=== PATIENT | female | born 1975 | race Caucasian/White ===

== ENCOUNTER 2017-10-31 09:35 | Emergency (ER) | payer SELFPAY ==
[~2017-10-31] VITALS: Ht 160 cm; Wt 61.2 kg
[2017-10-31] MEDS ORDERED: KETOROLAC 30 MG/ML VIAL IM ONE (10:45)
[2017-10-31] MEDS ORDERED: ORPHENADRINE 60 MG/2 ML (NORFLEX) AMP IM ONE (10:45)
[2017-10-31] MEDS ORDERED: PRD20T PO (11:23)
[2017-10-31] MEDS ORDERED: HYDR-3812 PO (11:23)
--- NOTE | 2017-10-31 11:23 | ED General ---
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 REPORTS HAS HAS PAIN IN R SHOULDER AND SCAPULA FOR 3 MONTHS WAS SEEN BY [facility] THIS WEEK AND SCHEDULED TO SEE ORTHO AT [facility] IN 2 WEEKS. REPORTS ADVIL NOT HELPING PAIN. Nursing Sepsis Screen: No Definite Risk Source of Information: Patient, [employer] Exam Limitations: No Limitations History of Present Illness Date Seen by Provider: Oct 31, 2017 Time Seen by Provider: 10:22 Initial Comments This 42-year-old woman presents to the emergency room with complaints of pain in the right shoulder and radiating down to the right elbow. This pain has been present for about 3 months. Pain has been intensifying and she now rates it as a 10. She has been using ibuprofen but that stopped helping about 3 weeks ago. She denies any injury or strain to this area. She has no numbness, weakness or paresthesias. Her last dose of ibuprofen 800 mg was yesterday. She has increased pain with movement of the right arm and with inspiration. The focus of her pain seems to be in the right trapezius muscle. She denies any cervical spine pain. Allergies and Home Medications Allergies Coded Allergies: No Known Drug Allergies (Unverified , 10/31/17) Home Medications Hydrocodone/Acetaminophen 1 Each Tablet, 1 EACH PO Q4H PRN for PAIN-MODERATE TO SEVERE Prescribed by: ANABELLE CLARK on 10/31/17 1123 Prednisone 20 Mg Tab, 40 MG PO DAILY Prescribed by: ANABELLE CLARK on 10/31/17 1123 Patient Home Medication List Home Medication List Reviewed: Yes Review of Systems Constitutional: no symptoms reported EENTM: no symptoms reported Respiratory: no symptoms reported Cardiovascular: no symptoms reported Gastrointestinal: no symptoms reported Genitourinary: no symptoms reported Musculoskeletal: see HPI Skin: no symptoms reported Psychiatric/Neurological: See HPI Hematologic/Lymphatic: No Symptoms Reported Immunological/Allergic: no symptoms reported Past Ccrxlpo-Aeuvfi-Diykqr Hx Patient Social History Alcohol Use: Denies Use Recreational Drug Use: No Smoking Status: Never a Smoker Recent Foreign Travel: No Contact w/Someone Who Travel: No Recent Infectious Disease Expo: No Past Medical History Surgeries: Yes Hysterectomy Respiratory: No Cardiac: No Neurological: No : No Reproductive Disorders: No Genitourinary: No Gastrointestinal: No Musculoskeletal: No Endocrine: No HEENT: No Cancer: No Did You Recieve Any Treatments: No Psychosocial: No Integumentary: No Physical Exam Vital Signs Vital Signs - First Documented 10/31/17 10:20 Temp 97.6 Pulse 82 Resp 18 B/P (MAP) 149/96 (113) Pulse Ox 96 O2 Delivery Room Air Capillary Refill : Less Than 3 Seconds General Appearance: WD/WN, Mild Distress HEENT: PERRL/EOMI, Normal ENT Inspection Neck: Full Range of Motion, Normal Inspection, Non Tender, Supple Respiratory: Lungs Clear, Normal Breath Sounds, No Accessory Muscle Use, No Respiratory Distress Cardiovascular: Regular Rate, Rhythm, No Edema, No Murmur Back: Normal Inspection, Other (Tenderness in the right trapezius muscle and in the musculature between the scapula and thoracic spine.) Extremity: Other (Mild tenderness in the musculature of the right upper arm. 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 Patient was given injection of Toradol and Norflex which did help her pain. Patient was started on a course of prednisone and given a prescription for hydrocodone for breakthrough pain. I checked with [facility] and discovered she has established care appointment later in the month. She is to talk with the primary care provider at that time about referral to orthopedics. Patient was also advised to complete the financial planner paperwork at discharge. Departure Impression Primary Impression: Right shoulder pain Qualified Codes: M25.511 - Pain in right shoulder Additional Impression: Right arm pain Disposition: HOME, SELF-CARE Condition: Improved Departure-Patient Inst. Decision time for Depature: 11:00 Referrals: [facility] (PCP/Family) Primary Care Physician Patient Instructions: NO INSTRUCTIONS GIVEN Add. Discharge Instructions: You may continue taking ibuprofen (Advil or Motrin) up to 600 mg every 6 hours as needed for pain. Add hydrocodone for pain not controlled by ibuprofen. Take prednisone early in the day with food or milk. Return to care if symptoms are worsening instead of improving. Keep your appointment with your primary care provider later this month. Discuss opportunities for imaging if pain is not improving. This may include MRI of the neck and/or upper back. Complete the financial planner paperwork for [facility] as soon as possible. All discharge instructions reviewed with patient and/or family. Voiced understanding. Scripts Hydrocodone/Acetaminophen (Hydrocodone-Acetamin 5-325 mg) 1 Each Tablet 1 EACH PO Q4H Y for PAIN-MODERATE TO SEVERE, #20 TAB Prov: ANABELLE RODRIGUEZ MD 10/31/17 Prednisone (Prednisone) 20 Mg Tab 40 MG PO DAILY, #10 TAB Prov: ANABELLE RODRIGUEZ MD 10/31/17 Copy Copies To 1: MAYANK ORANTES JOSHUA T MD Oct 31, 2017 11:23
[2017-10-31 11:31] VITALS: BP 149/96
== END 2017-10-31 11:29 | disposition home or self-care (01) ==
LOC: ER 09:39
DX: M25.511 Pain in right shoulder (principal); Z79.52 Long term (current) use of systemic steroids; Z90.710 Acquired absence of both cervix and uterus
CPT/HCPCS: 96372

== ENCOUNTER 2021-03-24 15:50 | Emergency (ER) | payer SELFPAY ==
[~2021-03-24] VITALS: Ht 152 cm; Wt 27.0 kg
[~2021-03-24 15:50] MED LIST: ACHD5005 PO; PRD20T PO
[2021-03-24] MEDS ORDERED: ASPIRIN 81 MG CHEW (CHILDREN'S ASA) PO STA (16:15)
[2021-03-24] MEDS ORDERED: NS IV 1000 ML 1,000 ML IV SCH (16:15)
[2021-03-24 16:24] LABS: BASOPHILS % (AUTO) 0 % (0-10); EOSINOPHILS % (AUTO) 0 % (0-10); HEMATOCRIT 40 % (35-52); LYMPHOCYTES # (AUTO) 1.6 10^3/uL (1.0-4.0); LYMPHOCYTES % (AUTO) 20 % (12-44); MEAN CORPUSCULAR HEMOGLOBIN 31 pg (25-34); MEAN CORPUSCULAR HGB CONC 35 g/dL (32-36); MEAN CORPUSCULAR VOLUME 90 fL (80-99); MEAN PLATELET VOLUME 10.1 fL (9.0-12.2); MONOCYTES # (AUTO) 0.5 10^3/uL (0.0-1.0); MONOCYTES % (AUTO) 6 % (0-12); NEUTROPHILS # (AUTO) 5.9 10^3/uL (1.8-7.8); NEUTROPHILS % (AUTO) 74 % (42-75); PLATELET COUNT 200 10^3/uL (130-400)
--- NOTE | 2021-03-24 16:25 | ED General ---
General Chief Complaint: General Problems/Pain Stated Complaint: HIGH BP,CHEST PAIN Nursing Triage Note: ARRIVED VIA AMB TO ROOM 06. PT STATES SHE HAS THE SENSATION OF BEING SOA AND CHOKING. STATES SHE HAS SOME CHEST PRESSURE OFF AND ON. DENIES ANXITY. History of Present Illness Date Seen by Provider: Mar 24, 2021 Time Seen by Provider: 15:50 Initial Comments 45 year old Yi speaking patient presents for chest pressure, SOA, and coughing. She reports a fever 2 days ago, she took Advil and used Eucalyptus. She denies any prescription medication. She has not received the Covid vaccine. She denies any known exposure. Her symptoms worsened this morning at approximately 0900. 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 Timing/Duration: 2-3 Days Severity: Mild Associated Systoms: Chest Pain, Cough; No Diaphoresis, No Fever/Chills, No Headaches; Loss of Appetite; No Malaise, No Nausea/Vomiting; Shortness of Air; No Syncope, No Weakness Allergies and Home Medications Allergies Coded Allergies: No Known Drug Allergies (Unverified , 10/31/17) Home Medications Albuterol Sulfate 1 Puff Puff, 2 PUFF INH Q4H 1 PUFF = 90 MCG Prescribed by: SYEDA BOCANEGRA on 03/24/211806 Azithromycin 250 Mg Tablet, 250 MG PO UD TAKE 2 TABLETS ON DAY ONE THEN TAKE 1 TABLET DAILY FOR FOUR MORE DAYS Prescribed by: SYEDA BOCANEGRA on 03/24/211806 Dexamethasone 6 Mg Tablet, 6 MG PO DAILY Prescribed by: SYEDA BOCANEGRA on 03/24/211806 Hydrocodone Bit/Acetaminophen 1 Each Tablet, 1 EACH PO Q4H PRN for PAIN-MODERATE TO SEVERE Prescribed by: ANABELLE CLRAK on 10/31/17 112 Prednisone 20 Mg Tab, 40 MG PO DAILY Prescribed by: ANABELLE CLARK on 10/31/17 112 Patient Home Medication List Home Medication List Reviewed: Yes Review of Systems Review of Systems Constitutional: no symptoms reported, see HPI Respiratory: see HPI, cough, short of breath Cardiovascular: see HPI, chest pain Gastrointestinal: no symptoms reported, see HPI Genitourinary: no symptoms reported, see HPI Musculoskeletal: no symptoms reported, see HPI All Other Systems Reviewed Negative Unless Noted: Yes Past Itathxt-Fcvtft-Bgyabx Hx Patient Social History Smoking Status: Never a Smoker Substance use?: No Alcohol Frequency: Couple times a week Pt feels they are or have been: No Past Medical History Surgeries: Yes Hysterectomy Respiratory: No Cardiac: No Neurological: No Reproductive Disorders: No Genitourinary: No Gastrointestinal: No Musculoskeletal: No Endocrine: No HEENT: No Cancer: No Did You Recieve Any Treatments: No Psychosocial: No Integumentary: No Family Medical History Reviewed Nursing Family Hx Physical Exam Vital Signs Vital Signs - First Documented 03/24/21 15:50 Temp 36.0 Pulse 84 Resp 16 B/P (MAP) 147/97 (114) Pulse Ox 100 O2 Delivery Room Air Capillary Refill : Less Than 3 Seconds Height, Weight, BMI Height: 5'3.00" Weight: 135lbs. oz. 61.570998sg; 11.00 BMI Method:Stated General Appearance: WD/WN, Anxious Eyes: Bilateral Eye Normal Inspection, Bilateral Eye PERRL, Bilateral Eye EOMI HEENT: PERRL/EOMI, TMs Normal, Normal ENT Inspection, Pharynx Normal Neck: Full Range of Motion, Normal Inspection, Non Tender, Supple Respiratory: Chest Non Tender, Lungs Clear, Normal Breath Sounds Cardiovascular: Regular Rate, Rhythm, No Edema, No Murmur, Normal Peripheral Pulses Gastrointestinal: Normal Bowel Sounds, Non Tender, Soft Back: Normal Inspection, No CVA Tenderness, No Vertebral Tenderness Extremity: Normal Capillary Refill, Normal Inspection, Normal Range of Motion Neurologic/Psychiatric: Alert, Oriented x3, No Motor/Sensory Deficits, Normal Mood/Affect Skin: Normal Color, Warm/Dry Progress/Results/Core Measures Suspected Sepsis SIRS Temperature: Pulse: 84 Respiratory Rate: 16 Laboratory Tests 03/24/21 16:10: White Blood Count 8.0 Blood Pressure 147 /97 Mean: 114 Laboratory Tests 03/24/21 16:10: Creatinine 0.69, Platelet Count 200, Total Bilirubin 0.4 Results/Orders Lab Results Laboratory Tests Test 03/24/21 16:10 03/24/21 16:35 Range/Units White Blood Count 8.0 4.3-11.0 10^3/uL Red Blood Count 4.48 3.80-5.11 10^6/uL Hemoglobin 14.0 11.5-16.0 g/dL Hematocrit 40 35-52 % Mean Corpuscular Volume 90 80-99 fL Mean Corpuscular Hemoglobin 31 25-34 pg Mean Corpuscular Hemoglobin Concent 35 32-36 g/dL Red Cell Distribution Width 11.9 10.0-14.5 % Platelet Count 200 130-400 10^3/uL Mean Platelet Volume 10.1 9.0-12.2 fL Immature Granulocyte % (Auto) 0 % Neutrophils (%) (Auto) 74 42-75 % Lymphocytes (%) (Auto) 20 12-44 % Monocytes (%) (Auto) 6 0-12 % Eosinophils (%) (Auto) 0 0-10 % Basophils (%) (Auto) 0 0-10 % Neutrophils # (Auto) 5.9 1.8-7.8 10^3/uL Lymphocytes # (Auto) 1.6 1.0-4.0 10^3/uL Monocytes # (Auto) 0.5 0.0-1.0 10^3/uL Eosinophils # (Auto) 0.0 0.0-0.3 10^3/uL Basophils # (Auto) 0.0 0.0-0.1 10^3/uL Immature Granulocyte # (Auto) 0.0 0.0-0.1 10^3/uL Erythrocyte Sedimentation Rate 32 H 0-20 MM/HR Sodium Level 141 135-145 MMOL/L Potassium Level 3.7 3.6-5.0 MMOL/L Chloride Level 108 H 98-107 MMOL/L Carbon Dioxide Level 21 21-32 MMOL/L Anion Gap 12 5-14 MMOL/L Blood Urea Nitrogen 7 7-18 MG/DL Creatinine 0.69 0.60-1.30 MG/DL Estimat Glomerular Filtration Rate 93 BUN/Creatinine Ratio 10 Glucose Level 100 70-105 MG/DL Calcium Level 8.8 8.5-10.1 MG/DL Corrected Calcium 8.6 8.5-10.1 MG/DL Total Bilirubin 0.4 0.1-1.0 MG/DL Aspartate Amino Transf (AST/SGOT) 33 5-34 U/L Alanine Aminotransferase (ALT/SGPT) 43 0-55 U/L Alkaline Phosphatase 90 40-136 U/L Lactate Dehydrogenase 237 H 125-220 U/L Troponin I < 0.028 <0.028 NG/ML C-Reactive Protein High Sensitivity 0.44 0.00-0.50 MG/DL Total Protein 7.7 6.4-8.2 GM/DL Albumin 4.2 3.2-4.5 GM/DL Procalcitonin 0.02 <0.10 NG/ML Influenza Type A (RT-PCR) Not Detected Not Detecte Influenza Type B (RT-PCR) Not Detected Not Detecte SARS-CoV-2 RNA (RT-PCR) Detected H Not Detecte Urine Color YELLOW Urine Clarity CLEAR Urine pH 6.5 5-9 Urine Specific [place] 1.010 L 1.016-1.022 Urine Protein NEGATIVE NEGATIVE Urine Glucose (UA) NEGATIVE NEGATIVE Urine Ketones NEGATIVE NEGATIVE Urine Nitrite NEGATIVE NEGATIVE Urine Bilirubin NEGATIVE NEGATIVE Urine Urobilinogen 0.2 < = 1.0 MG/DL Urine Leukocyte Esterase NEGATIVE NEGATIVE Urine RBC (Auto) TRACE-L NEGATIVE Urine RBC NONE /HPF Urine WBC 0-2 /HPF Urine Squamous Epithelial Cells 2-5 /HPF Urine Renal Epithelial Cells NONE /HPF Urine Crystals NONE /LPF Urine Bacteria NEGATIVE /HPF Urine Casts NONE /LPF Urine Mucus NEGATIVE /LPF Urine Culture Indicated NO My Orders Orders - SYEDA BOCANEGRA Cbc With Automated Diff (03/24/21 16:15) Comprehensive Metabolic Panel (03/24/21 16:15) Procalcitonin (Pct) (03/24/21 16:15) Hs C Reactive Protein (03/24/21 16:15) Erythrocyte Sedimentation Rate (03/24/21 16:15) LDH (03/24/21 16:15) Ekg Tracing (03/24/21 16:15) Chest 1 View, Ap/Pa Only (03/24/21 16:15) Covid 19 Inhouse Test (03/24/21 16:15) Influenza A And B By Pcr (03/24/21 16:15) Ua Culture If Indicated (03/24/21 16:15) Aspirin Chewable Tablet (Baby Aspirin Ch (03/24/21 16:15) Ed Iv/Invasive Line Start (03/24/21 16:15) Ns Iv 1000 Ml (Sodium Chloride 0.9%) (03/24/21 16:15) Urine Bedside (03/24/21 16:23) Troponin I (03/24/21 16:55) Vital Signs/I&O 03/24/21 03/24/21 15:50 18:15 Temp 36.0 Pulse 84 75 Resp 16 12 B/P (MAP) 147/97 (114) 153/91 Pulse Ox 100 99 O2 Delivery Room Air Room Air Capillary Refill : Less Than 3 Seconds Blood Pressure Mean: 114 Progress Note : Time: 15:20 Progress Note Patient seen and evaluated, will obtain labs, EKG, chest x-ray and Covid testing. Patient denies any requests at this time. 1630 Covid positive. Discussed results with the patient per translation line. Troponin and EKG negative. 1700 discharge instructions and return precautions reviewed with the patient. ECG Initial ECG Impression Date: Mar 24, 2021 Initial ECG Impression Time: 15:57 Initial ECG Rate: 88 Initial ECG Rhythm: Normal Sinus Initial ECG Intervals: Normal Initial ECG Intervals MO 137, QRSD 84, QT 374, QTc 453. [place] P 40, QRS 12, T 14. Initial ECG Impression: Normal Initial ECG Comparisson: No Previous ECG Available Diagnostic Imaging Diagonstic Imaging: Xray Plain Films/CT/US/NM/MRI: chest Comments NAME: CARLTON JEWELL TCM Bertha REC#: [id number] PT STATUS: REG ER : 1975 PHYSICIAN: SYEDA BOCANEGRA ADMIT DATE: 03/24/21/ER Draft Date of Exam:03/24/21 CHEST 1 VIEW, AP/PA ONLY INDICATION: Chest pressure, shortness of air. COMPARISON: None available. TECHNIQUE: Single frontal chest dated March 24, 2021. FINDINGS: The cardiac silhouette is within normal limits in size. No significant pulmonary vascular congestion. The left lung is clear. Mild right basilar interstitial opacities. No significant pleural effusion. No pneumothorax. No acute osseous abnormality. IMPRESSION: Mild right basilar infiltrate versus atelectasis. Dictated on workstation # [id number] Dict: 03/24/21 1734 Trans: 03/24/21 1742 [facility] [id number] Interpreted by: JULIAN FALL MD Electronically signed by: Reviewed: Reviewed by Me Departure Impression Primary Impression: COVID-19 Disposition: 01 HOME, SELF-CARE Condition: Stable Departure-Patient Inst. Decision time for Depature: 17:00 Referrals: [facility] (PCP/Family) Primary Care Physician Patient Instructions: COVID-19 (DC) Add. Discharge Instructions: Use medications as prescribed. Take aspirin 81 mg once daily. Increase water intake, 16 ounces every 2 hours while awake. Follow-up with your primary care provider if symptoms are not improving or worsen. Return to the emergency department for new, urgent healthcare problems. All discharge instructions reviewed with patient and/or family. Voiced understanding. Scripts Dexamethasone (Decadron) 6 Mg Tablet 6 MG PO DAILY, #7 TAB 0 Refills Prov: SYEDA BOCANEGRA 03/24/21 Albuterol Sulfate (VENTOLIN HFA) 1 Puff Puff 2 PUFF INH Q4H, #1 EA 0 Refills 1 PUFF = 90 MCG Prov: SYEDA BOCANEGRA 03/24/21 Azithromycin (Azithromycin) 250 Mg Tablet 250 MG PO UD, #6 TAB TAKE 2 TABLETS ON DAY ONE THEN TAKE 1 TABLET DAILY FOR FOUR MORE DAYS Prov: SYEDA BOCANEGRA 03/24/21 Work/School Note: Work Release Form Date Seen in the Emergency Department: Mar 24, 2021 Other Restrictions Listed Below: [facility] Dept. Restrictions: Must be afebrile for 24 hours without medications SYEDA BOCANEGRA Mar 24, 2021 16:25
[2021-03-24 16:33] LABS: ALBUMIN 4.2 GM/DL (3.2-4.5); POTASSIUM 3.7 MMOL/L (3.6-5.0)
[2021-03-24 16:34] LABS: CALCIUM 8.8 MG/DL (8.5-10.1)
[2021-03-24 16:36] LABS: TOTAL PROTEIN 7.7 GM/DL (6.4-8.2)
[2021-03-24 16:37] LABS: BILIRUBIN,TOTAL 0.4 MG/DL (0.1-1.0)
[2021-03-24 16:39] LABS: CREATININE SERUM 0.69 MG/DL (0.60-1.30)
[2021-03-24 16:47] LABS: BILIRUBIN,URINE NEGATIVE (NEGATIVE); CLARITY,URINE CLEAR; COLOR,URINE YELLOW; GLUCOSE, URINE (UA) NEGATIVE (NEGATIVE); KETONES,URINE NEGATIVE (NEGATIVE); LEUKOCYTE ESTERASE ,URINE NEGATIVE (NEGATIVE); NITRITE,URINE NEGATIVE (NEGATIVE); PH,URINE 6.5 (5-9); PROTEIN,URINE NEGATIVE (NEGATIVE)
[2021-03-24 16:48] LABS: ERYTHROCYTE SEDIMENTATION RATE 32 MM/HR (0-20)
[2021-03-24 17:02] LABS: BACTERIA,URINE NEGATIVE /HPF; WBC,URINE 0-2 /HPF
--- NOTE | 2021-03-24 17:42 | Diagnostic Imaging Report ---
INDICATION: Chest pressure, shortness of air. COMPARISON: None available. TECHNIQUE: Single frontal chest dated March 24, 2021. FINDINGS: The cardiac silhouette is within normal limits in size. No significant pulmonary vascular congestion. The left lung is clear. Mild right basilar interstitial opacities. No significant pleural effusion. No pneumothorax. No acute osseous abnormality. IMPRESSION: Mild right basilar infiltrate versus atelectasis. Dictated by: Dictated on workstation # [id number]
[2021-03-24] MEDS ORDERED: DEXA6TAB6 PO (18:07)
[2021-03-24] MEDS ORDERED: RT-ALBUINH INH (18:07)
[2021-03-24] MEDS ORDERED: AZIT250T12 PO (18:07)
[2021-03-24 18:15] VITALS: BP 153/91
== END 2021-03-24 18:15 | disposition home or self-care (01) ==
LOC: EDUNIT# 15:50 → ER 15:53
DX: U07.1 COVID-19 (principal); Z79.52 Long term (current) use of systemic steroids
CPT/HCPCS: 36415; 71045; 80053; 81000; 83615; 84145; 84484; 84703; 85025; 85652; 86141; 87636; 93005

== ENCOUNTER 2022-01-19 01:07 | Inpatient (IN) | payer SELFPAY ==
[2022-01-19] VITALS (7 sets, daily range): BP systolic 100–153; BP diastolic 66–88
[~2022-01-19] VITALS: Ht 160 cm; Wt 59.4 kg
[~2022-01-19 01:07] MED LIST changes: +AZIT250T12 PO; +DEXA6TAB6 PO; +RT-ALBUINH INH
[2022-01-19 02:30] LABS: BILIRUBIN,URINE NEGATIVE (NEGATIVE); CLARITY,URINE CLEAR; COLOR,URINE YELLOW; GLUCOSE, URINE (UA) NEGATIVE (NEGATIVE); KETONES,URINE NEGATIVE (NEGATIVE); LEUKOCYTE ESTERASE ,URINE 1+ (NEGATIVE); NITRITE,URINE NEGATIVE (NEGATIVE); PROTEIN,URINE 1+ (NEGATIVE)
[2022-01-19 02:35] LABS: BACTERIA,URINE TRACE /HPF; WBC,URINE 0-2 /HPF
[2022-01-19] MEDS ORDERED: CEFEPIME INJECTION 1,000 MG in NS (IVPB) 50 ML IV ONE (02:45)
[2022-01-19] MEDS ORDERED: IBUPROFEN 800 MG (MOTRIN) TAB PO STA (02:45)
[2022-01-19] MEDS ORDERED: ACETAMINOPHEN 500 MG TAB (TYLENOL) PO STA (02:45)
[2022-01-19] MEDS ORDERED: ONDANSETRON 4 MG/2 ML (SDV) Z0FRAN IVP ONE (02:45)
[2022-01-19] MEDS ORDERED: LACTATED RINGERS 1,000 ML IV ONE (02:45)
[2022-01-19 02:47] LABS: BASOPHILS % (AUTO) 0 % (0-10); EOSINOPHILS # (AUTO) 0.1 10^3/uL (0.0-0.3); EOSINOPHILS % (AUTO) 1 % (0-10); HEMATOCRIT 34 % (35-52); HEMOGLOBIN 11.4 g/dL (11.5-16.0); LYMPHOCYTES # (AUTO) 1.3 10^3/uL (1.0-4.0); LYMPHOCYTES % (AUTO) 10 % (12-44); MEAN CORPUSCULAR HEMOGLOBIN 31 pg (25-34); MEAN CORPUSCULAR HGB CONC 34 g/dL (32-36); MEAN CORPUSCULAR VOLUME 91 fL (80-99); MEAN PLATELET VOLUME 9.9 fL (9.0-12.2); MONOCYTES # (AUTO) 1.5 10^3/uL (0.0-1.0); MONOCYTES % (AUTO) 12 % (0-12); NEUTROPHILS # (AUTO) 9.4 10^3/uL (1.8-7.8); NEUTROPHILS % (AUTO) 76 % (42-75); PLATELET COUNT 262 10^3/uL (130-400); WHITE BLOOD COUNT 12.4 10^3/uL (4.3-11.0)
--- NOTE | 2022-01-19 02:50 | ED Abdominal Pain ---
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) Exam Limitations: Language Barrier History of Present Illness Date Seen by Provider: Jan 19, 2022 Time Seen by Provider: 02:07 Initial Comments PT ARRIVES VIA POV FROM HOME C/O RIGHT SIDED ABDOMINAL AND FLANK PAIN SINCE THURSDAY C/O NAUSEA AND VOMITING--CAN'T KEEP ANYTHING DOWN C/O PAIN/BURNING ON URINATION C/O SUBJECTIVE FEVER HAS NOT SOUGHT CARE UNTIL SHILOH TRIED TO TAKE TYLENOL FOR PAIN BUT COULD NOT KEEP IT DOWN PCP: [facility] Allergies and Home Medications Allergies Coded Allergies: No Known Drug Allergies (Unverified , 10/31/17) Patient Home Medication List Home Medication List Reviewed: Yes Albuterol Sulfate (Ventolin Hfa) 1 Puff Puff, 2 PUFF INH Q4H Prescribed by: SYEDA BOCANEGRA on 03/24/211806 Azithromycin (Azithromycin) 250 Mg Tablet, 250 MG PO UD Prescribed by: SYEDA BOCANEGRA on 03/24/211806 Dexamethasone (Decadron) 6 Mg Tablet, 6 MG PO DAILY Prescribed by: SYEDA BOCANEGRA on 03/24/211806 Hydrocodone Bit/Acetaminophen (Lortab 5 Mg Tablet) 1 Each Tablet, 1 EACH PO Q4H PRN for PAIN-MODERATE TO SEVERE Prescribed by: ANABELLE CLARK on 10/31/171122 Prednisone (Prednisone) 20 Mg Tab, 40 MG PO DAILY Prescribed by: ANABELLE CLARK on 10/31/171122 Review of Systems Review of Systems Constitutional: see HPI, fever Respiratory: No Symptoms Reported Cardiovascular: No Symptoms Reported Gastrointestinal: See HPI, Abdominal Pain, Nausea, Vomiting Genitourinary: See HPI, Burning, Flank Pain Musculoskeletal: see HPI, back pain Skin: no symptoms reported Psychiatric/Neurological: No Symptoms Reported Endocrine: No Symptoms Reported Hematologic/Lymphatic: No Symptoms Reported Past Srrppaw-Sexpig-Gbybfr Hx Patient Social History Tobacco Use?: No Use of E-Cig and/or Vaping dev: No Substance use?: No Alcohol Use?: No Pt feels they are or have been: No Immunizations Up To Date Influenza Vaccine Up-to-Date: No; Not Current Past Medical History Surgeries: Yes Hysterectomy Respiratory: No Cardiac: No Neurological: No Reproductive Disorders: Yes REIMBURSEMENT SPEC History: Hysterectomy Genitourinary: No Gastrointestinal: No Musculoskeletal: No Endocrine: No HEENT: No Cancer: No Did You Recieve Any Treatments: No Psychosocial: No Integumentary: No Blood Disorders: No Physical Exam Vital Signs Vital Signs - First Documented 01/19/22 02:46 Temp 37.8 Pulse 102 Resp 20 B/P (MAP) 143/86 (105) Pulse Ox 98 O2 Delivery Room Air Capillary Refill : Height/Weight/BMI Height: 5'3.00" Weight: 135lbs. oz. [id number]; 11.00 BMI Method:Stated General Appearance: WD/WN, other (LOOKS UNCOMFORTABLE) HEENT: PERRL/EOMI; No scleral icterus (R), No scleral icterus (L) Neck: normal inspection Respiratory: normal breath sounds, no respiratory distress, no accessory muscle use Cardiovascular: regular rate, rhythm, no murmur Gastrointestinal: normal bowel sounds, soft, no organomegaly, no pulsatile mass, tenderness (DIFFUSE RIGHT SIDED ABDOMINAL TENDERNESS AND RIGHT FLANK TENDERNESS) Extremities: normal inspection Back: CVA tenderness (R) Neurologic/Psychiatric: gum mixer II-XII nml as tested, no motor/sensory deficits, alert, oriented x 3 Skin: normal color (PT IS ), warm/dry (VERY WARM) Focused Exam Sepsis Stage: Sepsis Possible Source: Genitouriary Lactate Level 01/19/22 02:55: Lactic Acid Level 0.53 Time of Focused Exam: 04:30 Respiratory: Normal Breath Sounds, No Accessory Muscle Use, No Respiratory Di stress Cardiovascular: Regular Rate, Rhythm, No Murmur Capillary Refill: Less Than 3 Seconds Skin: normal color, warm/dry Lactic Acid Level Laboratory Tests Test 01/19/22 02:55 Lactic Acid Level 0.53 MMOL/L (0.50-2.00) Within 3hrs of presentation: Admin fluids, Admin ABX, Blood cultures prior to ABX's, Focus exam, Lactate level Progress/Results/Core Measures Results/Orders Lab Results Laboratory Tests Test 01/19/22 02:02 01/19/22 02:40 01/19/22 02:55 Range/Units Urine Color YELLOW Urine Clarity CLEAR Urine pH 6.0 5-9 Urine Specific [place] <=1.005 1.016-1.022 Urine Protein 1+ H NEGATIVE Urine Glucose (UA) NEGATIVE NEGATIVE Urine Ketones NEGATIVE NEGATIVE Urine Nitrite NEGATIVE NEGATIVE Urine Bilirubin NEGATIVE NEGATIVE Urine Urobilinogen 2.0 < = 1.0 MG/DL Urine Leukocyte Esterase 1+ H NEGATIVE Urine RBC (Auto) TRACE-I H NEGATIVE Urine RBC NONE /HPF Urine WBC 0-2 /HPF Urine Squamous Epithelial Cells 5-10 /HPF Urine Crystals NONE /LPF Urine Bacteria TRACE /HPF Urine Casts NONE /LPF Urine Mucus NEGATIVE /LPF Urine Culture Indicated NO White Blood Count 12.4 H 4.3-11.0 10^3/uL Red Blood Count 3.72 L 3.80-5.11 10^6/uL Hemoglobin 11.4 L 11.5-16.0 g/dL Hematocrit 34 L 35-52 % Mean Corpuscular Volume 91 80-99 fL Mean Corpuscular Hemoglobin 31 25-34 pg Mean Corpuscular Hemoglobin Concent 34 32-36 g/dL Red Cell Distribution Width 12.3 10.0-14.5 % Platelet Count 262 130-400 10^3/uL Mean Platelet Volume 9.9 9.0-12.2 fL Immature Granulocyte % (Auto) 0 % Neutrophils (%) (Auto) 76 H 42-75 % Lymphocytes (%) (Auto) 10 L 12-44 % Monocytes (%) (Auto) 12 0-12 % Eosinophils (%) (Auto) 1 0-10 % Basophils (%) (Auto) 0 0-10 % Neutrophils # (Auto) 9.4 H 1.8-7.8 10^3/uL Lymphocytes # (Auto) 1.3 1.0-4.0 10^3/uL Monocytes # (Auto) 1.5 H 0.0-1.0 10^3/uL Eosinophils # (Auto) 0.1 0.0-0.3 10^3/uL Basophils # (Auto) 0.0 0.0-0.1 10^3/uL Immature Granulocyte # (Auto) 0.1 0.0-0.1 10^3/uL Sodium Level 136 135-145 MMOL/L Potassium Level 3.4 L 3.6-5.0 MMOL/L Chloride Level 102 98-107 MMOL/L Carbon Dioxide Level 22 21-32 MMOL/L Anion Gap 12 5-14 MMOL/L Blood Urea Nitrogen 12 7-18 MG/DL Creatinine 1.27 0.60-1.30 MG/DL Estimat Glomerular Filtration Rate 53 BUN/Creatinine Ratio 9 Glucose Level 109 H 70-105 MG/DL Calcium Level 9.0 8.5-10.1 MG/DL Corrected Calcium 9.3 8.5-10.1 MG/DL Total Bilirubin 0.7 0.1-1.0 MG/DL Aspartate Amino Transf (AST/SGOT) 35 H 5-34 U/L Alanine Aminotransferase (ALT/SGPT) 59 H 0-55 U/L Alkaline Phosphatase 197 H 40-136 U/L Total Protein 7.5 6.4-8.2 GM/DL Albumin 3.6 3.2-4.5 GM/DL Amylase Level 45 25-125 U/L Lipase 15 8-78 U/L Procalcitonin 6.22 H <0.10 NG/ML Serum Test, Qualitative NEGATIVE NEGATIVE Lactic Acid Level 0.53 0.50-2.00 MMOL/L My Orders Orders - FRANTZ KAT DO Ed Iv/Invasive Line Start (01/19/22 02:07) Amylase (01/19/22 02:07) Cbc With Automated Diff (01/19/22 02:07) Comprehensive Metabolic Panel (01/19/22 02:07) Hcg,Qualitative Serum (01/19/22 02:07) Lipase (01/19/22 02:07) Ua Culture If Indicated (01/19/22 02:07) Monitor-Rhythm Ecg Trace Only (01/19/22 02:45) Lactic Acid Analyzer (01/19/22 02:45) Procalcitonin (Pct) (01/19/22 02:45) Blood Culture (01/19/22 02:45) Ed Iv/Invasive Line Start (01/19/22 02:45) Lactated Ringers (Lr 1000 Ml Iv Solution (01/19/22 02:45) Ondansetron Injection (Zofran Injectio (01/19/22 02:45) Acetaminophen Tablet (Tylenol Tablet) (01/19/22 02:45) Ibuprofen Tablet (Motrin Tablet) (01/19/22 02:45) Urine Culture (01/19/22 02:45) Chest 1 View, Ap/Pa Only (01/19/22 02:45) Ed Iv/Invasive Line Start (01/19/22 02:45) Vital Signs Adult Sepsis Patie Q15M (01/19/22 02:45) Remove Rings In Anticipation O (01/19/22 02:45) Cefepime Injection (Maxipime Injection) (01/19/22 02:45) Ketorolac Injection (Toradol Injection) (01/19/22 03:00) Ct Abd/Pelvis Wo(Kidney Stone) (01/19/22 ) Medications Given in ED Current Medications Medications Dose Ordered Sig/Barbi Route Start Time Stop Time Status Last Admin Dose Admin Cefepime HCl 1000 mg/Sodium Chloride 50 ml @ 100 mls/hr ONCE ONCE IV 01/19/22 02:45 01/19/22 03:14 DC 01/19/22 03:07 100 MLS/HR Ketorolac Tromethamine 30 mg ONCE ONCE IVP 01/19/22 03:00 01/19/22 03:01 DC 01/19/22 03:07 30 MG Lactated Ringer's 1,000 ml @ 0 mls/hr Q0M ONCE IV 01/19/22 02:45 01/19/22 02:48 DC 01/19/22 03:08 999 MLS/HR Ondansetron HCl 4 mg ONCE ONCE IVP 01/19/22 02:45 01/19/22 02:48 DC 01/19/22 03:07 4 MG Vital Signs/I&O 01/19/22 01/19/22 01/19/22 01/19/22 02:46 03:07 03:07 03:08 Temp 37.8 37.8 37.8 37.8 Pulse 102 Resp 20 B/P (MAP) 143/86 (105) Pulse Ox 98 O2 Delivery Room Air Progress Progress Note : Progress Note GIVEN IV FLUIDS, ZOFRAN, TORADOL AND TYLENOL AND MOTRIN SEPSIS PROTOCOL INITIATED SYMPTOMS MUCH IMPROVED WITH MEDICATIONS PAIN EASED NAUSEA EASED WITH NO VOMITING DURING ER STAY AND KEPT TYLENOL AND MOTRIN DOWN HR AND FEVER DOWN AT TIME OF ADMIT NO DETERIORATION IN PT'S CONDITION DURING ER STAY Diagnostic Imaging Comments CXR--NO ACUTE PROCESS, PENDING RADIOLOGIST REVIEW CT ABDOMEN/PELVIS--PER STAT RAD VIA FAX AT 0455 -RIGHT HYDRONEPHROSIS WITH INFLAMMATION OF PERIPELVIC FAT AND URETER WITHOUT EVIDENCE OF OBSTRUCTION LESION -CONCERNING FOR PASSED STONE OR PYELONEPHRITIS. Reviewed: Reviewed by Me Departure Communication (Admissions) 0500--SPOKE WITH DR. BARRIENTOS, HOSPITALIST FOR [facility] [place]. ACCEPTS PT FOR ADMIT. Impression Primary Impression: Sepsis Additional Impressions: Pyelonephritis UTI (urinary tract infection) Disposition: ADMITTED INPATIENT Condition: Stable Admissions Decision to Admit Reason: Admit from ER (General) Decision to Admit/Date: Jan 19, 2022 Time/Decision to Admit Time: 05:00 Departure-Patient Inst. Referrals: [facility] (PCP/Family) Primary Care Physician FRANTZ KAT DO Jan 19, 2022 02:50
[2022-01-19 02:58] LABS: ALBUMIN 3.6 GM/DL (3.2-4.5); POTASSIUM 3.4 MMOL/L (3.6-5.0)
[2022-01-19] MEDS ORDERED: KETOROLAC 30 MG/ML VIAL IVP ONE (03:00)
[2022-01-19 03:01] LABS: TOTAL PROTEIN 7.5 GM/DL (6.4-8.2)
[2022-01-19 03:02] LABS: BILIRUBIN,TOTAL 0.7 MG/DL (0.1-1.0)
[2022-01-19 03:04] LABS: CREATININE SERUM 1.27 MG/DL (0.60-1.30)
--- NOTE | 2022-01-19 06:02 | Diagnostic Imaging Report ---
CT ABD/PELVIS WO(KIDNEY STONE) TECHNIQUE: Unenhanced CT imaging of the abdomen and pelvis was performed. 2-D reformats are created and submitted for interpretation. Automatic exposure controls were utilized to optimize patient dose. INDICATION: Right-sided rib and abdominal pain COMPARISON: None available. FINDINGS: Evaluation of the abdominal viscera is suboptimal without contrast. Lower chest: The lung bases are clear. No pericardial or pleural effusion. Peritoneum: No free intraperitoneal air or loculated fluid collections. Liver and biliary system: Unenhanced liver is normal. Contracted gallbladder without radiopaque gallstones. Spleen and Pancreas: Spleen is normal. Unenhanced pancreas is grossly normal. Adrenals: Normal. tract: Mild asymmetric enlargement of the right kidney with perinephric stranding. The right ureter is mildly dilated but there is no obstructing stone present. Urinary bladder is moderately distended without wall thickening. No left renal or ureteral stones. Additionally, there is no left-sided hydronephrosis. Hysterectomy has likely been performed. No concerning adnexal mass. GI tract: Stomach is decompressed. No bowel obstruction. No pericolonic inflammatory changes. Normal appendix. Vasculature and Lymph nodes: Normal caliber aorta. No abdominal or pelvic lymphadenopathy. Musculoskeletal: No acute or healing fracture within the visualized lower ribs on either side. No fracture within the lumbar spine. IMPRESSION: 1. Right-sided perinephric stranding and hydroureter without obstructing stone. Differential consideration would include recently passed stone versus pyelonephritis. Correlation with urinalysis is advised. 2. No features of renal abscess. 3. Findings are in agreement with the preliminary report. Dictated by: Dictated on workstation # [id number]
--- NOTE | 2022-01-19 06:27 | Diagnostic Imaging Report ---
INDICATION: Fever. COMPARISON: 03/24/2021. FINDINGS: The lungs appear clear without focal airspace opacities or consolidation. There are no findings of an effusion. There is no evidence of a pneumothorax. Heart size and mediastinal contours appear appropriate. Pulmonary vascularity appears within normal limits. There is no acute or suspicious osseous abnormality demonstrated. IMPRESSION: No radiographic evidence of an acute cardiopulmonary process. Dictated by: Dictated on workstation # [id number]
[2022-01-19] MEDS ORDERED: ACETAMINOPHEN 500 MG TAB (TYLENOL) PO PRN (06:30)
[2022-01-19] MEDS ORDERED: CATHETER FLUSH 10 ML SYR IVP PRN (06:30)
[2022-01-19] MEDS ORDERED: KETOROLAC 30 MG/ML VIAL IVP PRN (06:30)
[2022-01-19] MEDS ORDERED: ONDANSETRON 4 MG/2 ML (SDV) Z0FRAN IV PRN ×2 (06:45→07:00)
[2022-01-19] MEDS ORDERED: LACTATED RINGERS 1,000 ML IV SCH (06:45)
[2022-01-19] MEDS ORDERED: IBUPROFEN 800 MG (MOTRIN) TAB PO PRN (06:45)
[2022-01-19] MEDS ORDERED: morphine INJ 4 MG/ML 1 ML (VIAL/SYRINGE) IV PRN (07:00)
[2022-01-19] MEDS ORDERED: ANTACID SUSP 30 ML UDC (MYLANTA) PO PRN (07:00)
[2022-01-19] MEDS ORDERED: diphenhydrAMINE 50 MG/ML INJ (BENADRYL) IVP PRN (07:00)
[2022-01-19] MEDS ORDERED: BISACODYL 10 MG SUPP (DULCOLAX) PR PRN (07:00)
[2022-01-19] MEDS ORDERED: diphenhydrAMINE 25 MG TAB (BENADRYL) PO PRN (07:00)
[2022-01-19] MEDS ORDERED: polyethylene glycoL POWDER 17 GM (MIRALAX) PACK PO PRN (07:00)
[2022-01-19] MEDS ORDERED: ONDANSETRON 4 MG (ZOFRAN) ORAL DISSOLVE TAB PO PRN (07:00)
[2022-01-19] MEDS ORDERED: LACTULOSE SYRUP 10GM/15ML (ENULOSE) 30ML UDC PO PRN (07:00)
[2022-01-19] MEDS ORDERED: MELATONIN 3 MG TABLET PO PRN (07:00)
[2022-01-19] MEDS ORDERED: MAGNESIUM 1 GM/100 ML IVPB 100 ML IV ONE (07:00)
[2022-01-19] MEDS ORDERED: CEFEPIME INJECTION 1,000 MG in NS (IVPB) 50 ML IV SCH (07:00)
[2022-01-19] MEDS ORDERED: CALCIUM CARBONATE 500 MG (TUMS) TAB.CHEW PO PRN (07:00)
[2022-01-19] MEDS ORDERED: MILK OF MAGNESIA 400 MG/5 ML 30 ML UDC PO PRN (07:00)
[2022-01-19] MEDS ORDERED: RT-ALBUTEROL SULF 2.5 MG/3 ML PRE-MIX VIAL INH PRN (07:15)
--- NOTE | 2022-01-19 07:27 | History & Physical-Hospitalist ---
History of Present Illness HPI/Chief Complaint Chief complaint: Sepsis from pyelonephritis History of present illness this is a 46-year-old female who speaks only Tajik who presented to the ER with right-sided flank pain found to have pyelonephritis on CT scan and UA actually appeared to be somewhat normal. Cefepime was initiated due to history of resistant organisms. Currently patient is doing well and her friend is at the bedside and she reports no nausea and pain is well controlled. Source: patient Exam Limitations: language barrier Date Seen 01/19/22 Time Seen by a Provider: 11:00 Attending Physician [place] PCP Admitting Physician: Janeth De DO Attending Physician: Janeth De DO Referring Physician Date of Admission Jan 19, 2022 at 05:00 Home Medications & Allergies Home Medications Reviewed patient Home Medication Reconciliation performed by pharmacy medication reconciliations welding technician and/or nursing. Patients Allergies have been reviewed. Allergies Allergies Coded Allergies No Known Drug Allergies (Unverified10/31/17) Past Ttpyrzv-Aekxes-Rhcvre Hx Patient Social History Marrital Status: single Employed/Student: unemployed Tobacco Use?: No Smoking Status: Never a Smoker Use of E-Cig and/or Vaping dev: No Substance use?: No Alcohol Use?: No Pt feels they are or have been: No Immunizations Up To Date Tetanus Booster (TDap): Unknown Current Status Advance Directives: No Communicates: Verbally Primary Language: Tajik Preferred Spoken Language: Tajik Is interpretation needed?: Yes Implanted or Applied Medical D: None Past Medical History 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 oz. 61.394247vj; 23.20 BMI Method:Stated General Appearance: No Apparent Distress Eyes: Right Eye Normal Inspection, Right Eye PERRL HEENT: PERRL/EOMI, Normal ENT Inspection, Pharynx Normal, Moist Mucous Membranes Neck: Full Range of Motion, Normal Inspection, Non Tender Respiratory: Chest Non Tender, Lungs Clear, Normal Breath Sounds, No Accessory Muscle Use, No Respiratory Distress Cardiovascular: Regular Rate, Rhythm, No Edema, No Gallop, No JVD, No Murmur, Normal Peripheral Pulses Gastrointestinal: Normal Bowel Sounds, No Organomegaly, No Pulsatile Mass, Non Tender, Soft Back: Normal Inspection, No CVA Tenderness, No Vertebral Tenderness Extremity: Normal Capillary Refill, Normal Inspection, Normal Range of Motion, Non Tender, No Calf Tenderness, No Pedal Edema Neurologic/Psychiatric: Alert, Oriented x3, No Motor/Sensory Deficits, Normal Mood/Affect Skin: Normal Color, Warm/Dry Lymphatic: No Adenopathy Results Results/Procedures Labs Laboratory Tests 01/19/22 02:40 Patient resulted labs reviewed. Assessment/Plan Admission Diagnosis Assessment: Sepsis Pyelonephritis Plan: Pain control IVF IV abx Admission Status: Inpatient Order (span 2 midnights) Reason for Inpatient Admission: sepsis Diagnosis/Problems Diagnosis/Problems (1) Sepsis Status: Acute (2) Pyelonephritis Status: Acute JANETH DE DO Jan 19, 2022 07:27
[2022-01-19] MEDS: POTASSIUM CL 10MEQ/50ML IVPB 50 ML IV SCH ×2 (08:03→09:17)
[2022-01-19] MEDS: NS IV 1000 ML 1,000 ML IV SCH ×3 (08:04→21:26)
[2022-01-19] MEDS: ENOXAPARIN 40 MG/0.4 ML (LOVENOX) SYR SC SCH (08:09)
[2022-01-19] MEDS: DOCUSATE SODIUM 100 MG (COLACE) CAP PO SCH ×2 (08:10→21:26)
[2022-01-19] MEDS: SENNOSIDES 8.6 MG (SENOKOT) TAB PO SCH ×2 (08:10→21:26)
[2022-01-19] MEDS: CEFEPIME 1,000 MG/NS 50 ML IVPB IV SCH ×6 (09:17→21:26)
[2022-01-19] MEDS: ACETAMINOPHEN 325 MG TABLET PO PRN ×2 (13:54→20:06)
[2022-01-19] MEDS ORDERED: NS (IVPB) 50 ML ONE ×2 (15:05→15:06)
[2022-01-19] MEDS: CATHETER FLUSH 10 ML SYR IVP SCH ×2 (15:11→22:35)
[2022-01-20] VITALS (7 sets, daily range): BP systolic 120–155; BP diastolic 76–89
[2022-01-20] MEDS: ACETAMINOPHEN 325 MG TABLET PO PRN ×2 (01:51→20:25)
[2022-01-20] MEDS: CEFEPIME 1,000 MG/NS 50 ML IVPB IV SCH ×8 (03:18→20:21)
[2022-01-20] MEDS: CATHETER FLUSH 10 ML SYR IVP SCH ×3 (05:25→20:22)
[2022-01-20 05:54] LABS: BASOPHILS % (AUTO) 1 % (0-10); EOSINOPHILS # (AUTO) 0.1 10^3/uL (0.0-0.3); EOSINOPHILS % (AUTO) 1 % (0-10); HEMATOCRIT 32 % (35-52); HEMOGLOBIN 10.6 g/dL (11.5-16.0); LYMPHOCYTES # (AUTO) 1.2 10^3/uL (1.0-4.0); LYMPHOCYTES % (AUTO) 16 % (12-44); MEAN CORPUSCULAR HEMOGLOBIN 31 pg (25-34); MEAN CORPUSCULAR HGB CONC 33 g/dL (32-36); MEAN CORPUSCULAR VOLUME 93 fL (80-99); MEAN PLATELET VOLUME 10.1 fL (9.0-12.2); MONOCYTES # (AUTO) 1.1 10^3/uL (0.0-1.0); MONOCYTES % (AUTO) 15 % (0-12); NEUTROPHILS # (AUTO) 4.9 10^3/uL (1.8-7.8); NEUTROPHILS % (AUTO) 67 % (42-75); PLATELET COUNT 293 10^3/uL (130-400); WHITE BLOOD COUNT 7.3 10^3/uL (4.3-11.0)
--- NOTE | 2022-01-20 06:10 | Progress Note - Hospitalist ---
Subjective HPI/CC On Admission Date Seen by Provider: Jan 20, 2022 Time Seen by Provider: 10:00 Chief complaint: Sepsis from pyelonephritis History of present illness this is a 46-year-old female who speaks only Khmer who presented to the ER with right-sided flank pain found to have pyelonephritis on CT scan and UA actually appeared to be somewhat normal. Cefepime was initiated due to history of resistant organisms. Currently patient is doing well and her friend is at the bedside and she reports no nausea and pain is well controlled. Subjective/Events-last exam Patient much improved Cefepime maintained Urine culture pending Fever episodes occur Medical Khmer provided for communication with the patient Patient will discharge tomorrow Review of Systems General: Fatigue Gastrointestinal: Nausea, Abdominal Pain Focused Exam Lactate Level 01/19/22 02:55: Lactic Acid Level 0.53 Time of Focused Exam: 04:30 Objective Exam Vital Signs Vital Signs Date Time Temp Pulse Resp B/P (MAP) Pulse Ox O2 Delivery O2 Flow Rate FiO2 01/20/22 19:57 37.3 92 18 140/76 (97) 97 Room Air 01/20/22 08:06 0.00 Capillary Refill : Less Than 3 Seconds General Appearance: No Apparent Distress, WD/WN, Chronically ill Respiratory: Lungs Clear, Normal Breath Sounds Cardiovascular: Regular Rate, Rhythm Neurologic/Psychiatric: Alert, Oriented x3, No Motor/Sensory Deficits, Normal Mood/Affect Results/Procedures Lab Laboratory Tests 01/20/22 05:16 Patient resulted labs reviewed. Assessment/Plan Assessment and Plan Assess & Plan/Chief Complaint Assessment: Sepsis Pyelonephritis Plan: Pain control IVF IV abx Diagnosis/Problems Diagnosis/Problems (1) Sepsis Status: Acute (2) Pyelonephritis Status: Acute SHIMON BARRIENTOS DO Jan 20, 2022 06:10
[2022-01-20 06:12] LABS: ALBUMIN 3.1 GM/DL (3.2-4.5); POTASSIUM 3.5 MMOL/L (3.6-5.0)
[2022-01-20 06:13] LABS: CALCIUM 8.2 MG/DL (8.5-10.1)
[2022-01-20 06:14] LABS: TOTAL PROTEIN 6.6 GM/DL (6.4-8.2)
[2022-01-20 06:16] LABS: BILIRUBIN,TOTAL 0.6 MG/DL (0.1-1.0)
[2022-01-20 06:18] LABS: CREATININE SERUM 1.01 MG/DL (0.60-1.30)
[2022-01-20] MEDS: NS IV 1000 ML 1,000 ML IV SCH ×3 (06:34→23:12)
[2022-01-20] MEDS: KETOROLAC 15 MG/ML VIAL IV PRN (08:24)
[2022-01-20] MEDS: ENOXAPARIN 40 MG/0.4 ML (LOVENOX) SYR SC SCH (08:24)
[2022-01-20] MEDS: DOCUSATE SODIUM 100 MG (COLACE) CAP PO SCH ×2 (08:25→20:22)
[2022-01-20] MEDS: SENNOSIDES 8.6 MG (SENOKOT) TAB PO SCH ×2 (08:25→20:22)
[2022-01-20] MEDS ORDERED: IBUP200C11 PO (10:44)
[2022-01-21] MEDS: CEFEPIME 1,000 MG/NS 50 ML IVPB IV SCH ×4 (03:19→08:35)
[2022-01-21 03:59] VITALS: BP 170/83
[2022-01-21] MEDS: KETOROLAC 15 MG/ML VIAL IV PRN (04:11)
[2022-01-21] MEDS: ACETAMINOPHEN 325 MG TABLET PO PRN (04:13)
[2022-01-21] MEDS: CATHETER FLUSH 10 ML SYR IVP SCH (04:25)
[2022-01-21 04:57] VITALS: BP 128/73
[2022-01-21] MEDS: NS IV 1000 ML 1,000 ML IV SCH (06:11)
[2022-01-21 06:30] LABS: BASOPHILS # (AUTO) 0.1 10^3/uL (0.0-0.1); BASOPHILS % (AUTO) 1 % (0-10); EOSINOPHILS # (AUTO) 0.2 10^3/uL (0.0-0.3); EOSINOPHILS % (AUTO) 2 % (0-10); HEMATOCRIT 31 % (35-52); HEMOGLOBIN 10.4 g/dL (11.5-16.0); LYMPHOCYTES # (AUTO) 1.1 10^3/uL (1.0-4.0); LYMPHOCYTES % (AUTO) 15 % (12-44); MEAN CORPUSCULAR HEMOGLOBIN 31 pg (25-34); MEAN CORPUSCULAR HGB CONC 34 g/dL (32-36); MEAN CORPUSCULAR VOLUME 91 fL (80-99); MEAN PLATELET VOLUME 10.1 fL (9.0-12.2); MONOCYTES % (AUTO) 13 % (0-12); NEUTROPHILS # (AUTO) 4.9 10^3/uL (1.8-7.8); NEUTROPHILS % (AUTO) 68 % (42-75); PLATELET COUNT 283 10^3/uL (130-400); WHITE BLOOD COUNT 7.2 10^3/uL (4.3-11.0)
[2022-01-21 06:36] LABS: ALBUMIN 3.3 GM/DL (3.2-4.5)
[2022-01-21 06:37] LABS: POTASSIUM 3.4 MMOL/L (3.6-5.0)
[2022-01-21 06:38] LABS: CALCIUM 8.6 MG/DL (8.5-10.1)
[2022-01-21 06:39] LABS: TOTAL PROTEIN 6.8 GM/DL (6.4-8.2)
[2022-01-21 06:41] LABS: BILIRUBIN,TOTAL 0.4 MG/DL (0.1-1.0)
[2022-01-21 06:43] LABS: CREATININE SERUM 0.81 MG/DL (0.60-1.30)
[2022-01-21 07:43] VITALS: BP 123/76
[2022-01-21] MEDS: ENOXAPARIN 40 MG/0.4 ML (LOVENOX) SYR SC SCH (08:35)
[2022-01-21] MEDS: DOCUSATE SODIUM 100 MG (COLACE) CAP PO SCH (08:35)
[2022-01-21] MEDS: SENNOSIDES 8.6 MG (SENOKOT) TAB PO SCH (08:35)
[2022-01-21] MEDS ORDERED: CEFD300C3 PO (09:03)
[2022-01-21] MEDS ORDERED: OXC5T PO (09:03)
--- NOTE | 2022-01-21 09:05 | Discharge Summary ---
Discharge Summary Hospital Course Was the Problem List Reviewed?: Yes Problems/Dx: (1) Sepsis Status: Acute Qualifiers: Qualified Codes: A41.9 - Sepsis, unspecified organism (2) Pyelonephritis Status: Acute Hospital Course Date of Admission: Jan 19, 2022 at 05:00 Admission Diagnosis : Family Physician/Provider: [place] Date of Discharge: 01/21/22 Discharge Diagnosis: sepsis, pyelo Hospital Course: Hospital course: Patient had an uneventful 3-day hospital course after she was admitted for sepsis due to pyelonephritis IV fluid and IV cefepime was initiated. Urine culture was no growth to date because the infection was contai jessica in the kidney on CT scan. She was doing really well fever had defervesced she was ambulating had no significant pain she was discharged on antibiotics and those were sent to [facility] along with a small amount of pain medication. Labs and Pending Lab Test: Laboratory Tests 01/21/22 05:55: White Blood Count 7.2, Red Blood Count 3.35L, Hemoglobin 10.4L, Hematocrit 31L, Mean Corpuscular Volume 91, Mean Corpuscular Hemoglobin 31, Mean Corpuscular Hemoglobin Concent 34, Red Cell Distribution Width 12.0, Platelet Count 283, Mean Platelet Volume 10.1, Immature Granulocyte % (Auto) 1, Neutrophils (%) (Auto) 68, Lymphocytes (%) (Auto) 15, Monocytes (%) (Auto) 13H, Eosinophils (%) (Auto) 2, Basophils (%) (Auto) 1, Neutrophils # (Auto) 4.9, Lymphocytes # (Auto) 1.1, Monocytes # (Auto) 1.0, Eosinophils # (Auto) 0.2, Basophils # (Auto) 0.1, Immature Granulocyte # (Auto) 0.1, Sodium Level 138, Potassium Level 3.4L, Chloride Level 107, Carbon Dioxide Level 22, Anion Gap 9, Blood Urea Nitrogen 6L , Creatinine 0.81, Estimat Glomerular Filtration Rate 92, BUN/Creatinine Ratio 7, Glucose Level 113H, Calcium Level 8.6, Corrected Calcium 9.2, Total Bilirubin 0.4, Aspartate Amino Transf (AST/SGOT) 53H, Alanine Aminotransferase (ALT/SGPT) 62H, Alkaline Phosphatase 240H, Total Protein 6.8, Albumin 3.3, Procalcitonin [Pending] Microbiology 01/19/22 Blood Culture - Preliminary, Resulted No growth 01/19/22 Urine Culture - Preliminary, Resulted NO GROWTH Home Meds Active Cefdinir 300 Mg Capsule 300 Mg PO BID Oxyir Tablet (Oxycodone HCl) 5 Mg Tab 5 Mg PO Q4HR PRN Reported Advil (Ibuprofen) 200 Mg Capsule 200 Mg PO Q6H PRN Assessment/Pt Instructions pcp 1 week Discharge Planning: <30 minutes discharge planning Discharge Instructions Discharge Diet: No Restrictions Discharge Physical Examination Vital Signs Vital Signs Date Time Temp Pulse Resp B/P (MAP) Pulse Ox O2 Delivery O2 Flow Rate FiO2 01/21/22 07:43 36.8 68 18 123/76 (92) 99 Room Air 01/20/22 08:06 0.00 General Appearance: No Apparent Distress, WD/WN Allergies: Coded Allergies: No Known Drug Allergies (Unverified , 10/31/17) Discharge Summary Date of Admission Jan 19, 2022 at 05:00 Date of Discharge Discharge Date: Jan 21, 2022 Admission Diagnosis Assessment: Sepsis Pyelonephritis Plan: Pain control IVF IV abx Discharge Diagnosis Assessment: Sepsis Pyelonephritis Plan: Pain control IVF IV abx (1) Sepsis Status: Acute Qualifiers: Qualified Codes: A41.9 - Sepsis, unspecified organism (2) Pyelonephritis Status: Acute SHIMON BARRIENTOS DO Jan 21, 2022 09:05
[2022-01-21 10:44] VITALS: BP 123/76
== END 2022-01-21 10:44 | disposition home or self-care (01) | DRG 872 ==
LOC: EDUNIT# 01:07 → ER 01:10 → EDLOC 05:00 → 4TH 05:00
PROVIDERS: ADMIT Internal Medicine; ATTEND Internal Medicine
DX: A41.9 Sepsis, unspecified organism (principal); N10 Acute pyelonephritis; Z28.310 Unvaccinated for COVID-19
CPT/HCPCS: 36415; 71045; 74176; 80053; 81000; 82150; 83605; 83690; 84145; 84703; 85025; 87040; 87088; 93041; 94760; 96374; 96375